=== PATIENT | female | born 1940 | race African-American/Black ===

== ENCOUNTER 2020-01-24 00:50 | Inpatient (IN) | payer MEDICARE, MEDICAID ==
[~2020-01-24] VITALS: Ht 165.1 cm; Wt 109.8 kg
[2020-01-24] VITALS (7 sets, daily range): BP systolic 86–129; BP diastolic 49–69
[2020-01-24] MEDS ORDERED: DEXTROSE 50% WATER 50ML SYRINGE IV ONE ×4 (01:00→09:41)
[2020-01-24 01:19] LABS: CHLORIDE 106 mEq/L (98-107)
[2020-01-24 01:27] LABS: BASOPHILS % 0.2 % (0.0-2.0); EOSINOPHILS % 0.4 % (0.0-5.0); HEMATOCRIT. 36.9 % (36.0-48.0); HEMOGLOBIN. 12.7 g/dL (12.0-16.0); LYMPHOCYTES % 12.9 % (20.0-50.0); MEAN CORPUSCULAR HEMOGLOBIN 30.1 pg (28.0-32.0); MEAN CORPUSCULAR VOLUME 87.7 fL (81.0-99.0); MEAN PLATELET VOLUME 8.9 fl (7.4-10.4); MONOCYTES % 4.3 % (2.0-8.0); NEUTROPHILS % 82.2 % (40.0-76.0); PLATELET 129 x1000/uL (130-400); RED CELL DISTRIBUTION WIDTH 18.4 % (11.6-14.6)
[2020-01-24] MEDS ORDERED: DEXT 5%/0.9% NACL 1,000 ML IV ONE (01:30)
[2020-01-24] MEDS ORDERED: AMMONIA INHALATION 1EA INH ONE (01:45)
[2020-01-24 03:25] LABS: CHLORIDE 107 mEq/L (98-107)
[2020-01-24] MEDS ORDERED: DEXTROSE 10% WATER 500 ML IV ONE (03:30)
[2020-01-24] MEDS ORDERED: DEXT 5%/0.9% NACL 1,000 ML IV SCH (09:45)
[2020-01-24] MEDS ORDERED: DEXTROSE 50% WATER 50ML SYRINGE IV PRN ×3 (09:45→20:00)
[2020-01-24] MEDS: IBUPROFEN 400MG TABLET PO PRN ×2 (11:17→17:43)
[2020-01-24 11:59] LABS: INR 1.8; PROTHROMBIN TIME 19.2 sec (9.6-11.0)
[2020-01-24] MEDS: FUROSEMIDE 40MG/4ML VIAL IVP NR ×2 (13:30→16:24)
[2020-01-24] MEDS ORDERED: FLUT1BLS11 IH (15:24)
[2020-01-24] MEDS ORDERED: FAMO20TA8 PO (15:24)
[2020-01-24] MEDS ORDERED: AMLO10TA80 PO (15:24)
[2020-01-24] MEDS ORDERED: ASPI-1497 PO (15:24)
[2020-01-24] MEDS ORDERED: EZET10TA13 PO (15:24)
[2020-01-24] MEDS ORDERED: B25 PO (15:24)
[2020-01-24] MEDS ORDERED: LATA2.5D2 EACHEYE (15:24)
[2020-01-24] MEDS ORDERED: DORZ10DR9 EACHEYE (15:24)
[2020-01-24] MEDS ORDERED: METH2.5T PO (15:24)
[2020-01-24] MEDS ORDERED: FOLI-43 MT (15:24)
[2020-01-24] MEDS ORDERED: REPA2TAB8 PO (15:24)
[2020-01-24] MEDS ORDERED: ATOR20TA65 PO (15:24)
[2020-01-24] MEDS ORDERED: LEVO5TAB13 PO (15:24)
[2020-01-24] MEDS ORDERED: IBUP-2029 PO (15:24)
[2020-01-24] MEDS ORDERED: ONDANSETRON HCL 4MG/2ML INJ IV PRN (17:30)
[2020-01-24] MEDS ORDERED: DEXTROSE 10% WATER 1,000 ML IV SCH (18:30)
[2020-01-24] MEDS: BLOOD SUGAR DIAGNOSTIC STRIP TEST SCH (21:00)
[2020-01-24] MEDS: INSULIN LISPRO 100 UNITS/ML SUBCUT SCH (21:00)
[2020-01-24] MEDS: HYDROCODONE/ACETAMINOPHEN 5/325MG TABLET PO PRN (21:49)
[2020-01-25] VITALS (12 sets, daily range): BP systolic 97–132; BP diastolic 28–73
[2020-01-25] MEDS: INSULIN LISPRO 100 UNITS/ML SUBCUT SCH ×4 (06:41→21:00)
[2020-01-25] MEDS: BLOOD SUGAR DIAGNOSTIC STRIP TEST SCH ×4 (06:41→20:48)
[2020-01-25] MEDS: HYDROCODONE/ACETAMINOPHEN 5/325MG TABLET PO PRN ×2 (11:39→16:04)
[2020-01-25 16:19] LABS: CHLORIDE 103 mEq/L (98-107)
[2020-01-25 16:20] LABS: BASOPHILS % 0.2 % (0.0-2.0); EOSINOPHILS % 0.3 % (0.0-5.0); HEMATOCRIT. 37.5 % (36.0-48.0); HEMOGLOBIN. 11.7 g/dL (12.0-16.0); LYMPHOCYTES % 12.5 % (20.0-50.0); MEAN CORPUSCULAR HEMOGLOBIN 29.4 pg (28.0-32.0); MEAN PLATELET VOLUME 9.5 fl (7.4-10.4); MONOCYTES % 3.4 % (2.0-8.0); NEUTROPHILS % 83.6 % (40.0-76.0); PLATELET 106 x1000/uL (130-400); RED BLOOD CELL COUNT 3.99 mill/uL (4.2-5.4); RED CELL DISTRIBUTION WIDTH 19.5 % (11.6-14.6)
[2020-01-26] VITALS (46 sets, daily range): BP systolic 69–120; BP diastolic 16–66
[2020-01-26] MEDS: BLOOD SUGAR DIAGNOSTIC STRIP TEST SCH ×4 (06:31→23:38)
[2020-01-26] MEDS: INSULIN LISPRO 100 UNITS/ML SUBCUT SCH ×4 (06:31→23:39)
[2020-01-26] MEDS ORDERED: FUROSEMIDE 40MG/4ML VIAL IVP SCH (08:30)
[2020-01-26] MEDS ORDERED: ALBUTEROL (0.5%) 2.5MG/0.5ML NEB HHN SCH (08:30)
[2020-01-26 09:50] LABS: BG BASE EXCESS -21.6 mmol/L (-2.0-2.0); BG DEOXYHEMOGLOBIN 2.4 % (0.0-5.0); BG FRACTION INSPIRED OXYGEN 44; BG METHEMOGLOBIN 0.2 % (0.0-1.5); BG OXYGEN SATURATION 97.6 % (92.0-98.5); BG OXYHEMOGLOBIN 97.4 % (94.0-97.0); BG PCO2 14.6 mmHg (35.0-45.0); BG PH 7.155 (7.350-7.450); BG SAMPLE SITE LEFT BRACHIAL; BG TOTAL HEMOGLOBIN 11.4 g/dL (12.0-18.0); BG VENT MODE NASAL CANNULA
[2020-01-26 09:50] LABS: HEMATOCRIT. 36.1 % (36.0-48.0); HEMOGLOBIN. 11.3 g/dL (12.0-16.0); MEAN CORPUSCULAR HEMOGLOBIN 29.2 pg (28.0-32.0); MEAN CORPUSCULAR VOLUME 93.3 fL (81.0-99.0); MEAN PLATELET VOLUME 9.3 fl (7.4-10.4); PLATELET 135 x1000/uL (130-400); RED BLOOD CELL COUNT 3.87 mill/uL (4.2-5.4); RED CELL DISTRIBUTION WIDTH 19.6 % (11.6-14.6)
[2020-01-26 09:59] LABS: PROTHROMBIN TIME 21.1 sec (9.6-11.0)
[2020-01-26] MEDS ORDERED: SODIUM BICARBONATE 8.4% 1 MEQ/ML 50ML SYR IV NR ×3 (10:00→15:30)
[2020-01-26] MEDS ORDERED: ENOXAPARIN 120MG/0.8ML SYR SUBCUT SCH (10:00)
[2020-01-26] MEDS ORDERED: ALBUTEROL (0.083%) 2.5MG/3ML NEB HHN SCH (12:00)
[2020-01-26 12:29] LABS: BG BASE EXCESS -21.6 mmol/L (-2.0-2.0); BG BILEVEL POS AIRWAY PRESSURE 15/5; BG CARBOXYHEMOGLOBIN 0.3 % (0.5-1.5); BG DEOXYHEMOGLOBIN 0.5 % (0.0-5.0); BG FRACTION INSPIRED OXYGEN 100; BG HCO3 ACT 5.9 mmol/L (22.0-26.0); BG METHEMOGLOBIN 0.2 % (0.0-1.5); BG OXYGEN SATURATION 99.5 % (92.0-98.5); BG PCO2 18.7 mmHg (35.0-45.0); BG PH 7.118 (7.350-7.450); BG PO2 398.4 mmHg (75.0-100.0); BG SAMPLE SITE LEFT BRACHIAL; BG TOTAL HEMOGLOBIN 10.2 g/dL (12.0-18.0); BG VENT MODE MASK - BIPAP; BG VENT RATE 18 set
[2020-01-26] MEDS ORDERED: SODIUM BICARBONATE 50 MEQ in DEXTROSE 5% WATER 1,000 ML IV SCH (13:00)
[2020-01-26] MEDS ORDERED: PROPOFOL 10MG/ML 100ML 100 ML IV PRN (13:45)
[2020-01-26] MEDS ORDERED: FENTANYL CITRATE/PF 500 MCG in SODIUM CHLORIDE 0.9% 40 ML IV PRN (13:45)
[2020-01-26] MEDS ORDERED: FENTANYL 1,000 MCG in SODIUM CHLORIDE 0.9% 100 ML IV PRN (14:00)
[2020-01-26] MEDS ORDERED: SODIUM CHLORIDE 0.9% 10ML VIAL ONE (14:05)
[2020-01-26] MEDS ORDERED: VECURONIUM BROMIDE 10 MG/VIAL IV ONE (14:05)
[2020-01-26] MEDS ORDERED: ETOMIDATE 2MG/ML 10ML VIAL IV ONE (14:05)
[2020-01-26] MEDS ORDERED: PHENYLEPHRINE HCL 10 MG/ML 1ML (IV VIAL) IV ONE (14:05)
[2020-01-26 14:11] LABS: PLATELET ESTIMATE NORMAL
[2020-01-26] MEDS ORDERED: ALBUMIN HUMAN 25GM/100ML (25%) IV NR (14:45)
[2020-01-26] MEDS ORDERED: VANCOMYCIN 2,000 MG in DEXT 5% WATER 500 ML IV NR (15:00)
[2020-01-26] MEDS ORDERED: CEFTRIAXONE 1 G PREMIX 50 ML IV SCH (15:00)
[2020-01-26 15:15] LABS: BG BASE EXCESS -19.6 mmol/L (-2.0-2.0); BG CARBOXYHEMOGLOBIN 0.3 % (0.5-1.5); BG DEOXYHEMOGLOBIN 0.4 % (0.0-5.0); BG FRACTION INSPIRED OXYGEN 100; BG HCO3 ACT 8.4 mmol/L (22.0-26.0); BG METHEMOGLOBIN 0.5 % (0.0-1.5); BG OXYGEN SATURATION 99.6 % (92.0-98.5); BG OXYHEMOGLOBIN 98.8 % (94.0-97.0); BG PCO2 27.1 mmHg (35.0-45.0); BG PO2 300.9 mmHg (75.0-100.0); BG SAMPLE SITE LEFT RADIAL; BG TIDAL VOLUME(mL) 550 mL; BG TOTAL HEMOGLOBIN 10.3 g/dL (12.0-18.0); BG VENT MODE VENT - A/C; BG VENT RATE 20 set
[2020-01-26] MEDS: PHENYLEPHRINE 80 MG in DEXT 5% WATER 500 ML IV PRN ×2 (15:55→23:54)
[2020-01-26] MEDS: IPRATROPIUM/ALBUTEROL 0.5-3(2.5)MG/3ML NEB HHN SCH (16:39)
[2020-01-26] MEDS ORDERED: SODIUM BICARBONATE 100 MEQ in DEXTROSE 5% WATER 1,000 ML IV SCH (18:00)
[2020-01-26] MEDS ORDERED: NOREPINEPHRINE 32 MG in DEXT 5% WATER 468 ML IV PRN (19:00)
[2020-01-26 21:29] LABS: CLARITY URINE TURBID (CLEAR); COLOR URINE DARK YELLOW (YELLOW); KETONES URINE NEGATIVE (NEGATIVE); LEUKOCYTE ESTERASE URINE 1+ (NEGATIVE); NITRITE URINE POSITIVE (NEGATIVE); OCCULT BLOOD URINE 3+ (NEGATIVE); PROTEIN URINE 1+ (NEGATIVE); UROBILINOGEN URINE 0.2 E.U./dL (0.2-1.0)
[2020-01-26] MEDS ORDERED: DOPAMINE HCL 800 MG in DEXT 5% WATER 230 ML IV PRN (22:15)
[2020-01-26] MEDS: METRONIDAZOLE 500 MG PREMIX 100 ML IV SCH (22:29)
[2020-01-26 23:12] LABS: BASOPHILS % 0.9 % (0.0-2.0); EOSINOPHILS % 0.4 % (0.0-5.0); HEMOGLOBIN. 9.9 g/dL (12.0-16.0); LYMPHOCYTES % 24.4 % (20.0-50.0); MEAN CORPUSCULAR HEMOGLOBIN 30.3 pg (28.0-32.0); MEAN CORPUSCULAR VOLUME 97.7 fL (81.0-99.0); MEAN PLATELET VOLUME 9.1 fl (7.4-10.4); MONOCYTES % 1.2 % (2.0-8.0); NEUTROPHILS % 73.1 % (40.0-76.0); PLATELET 101 x1000/uL (130-400); RED BLOOD CELL COUNT 3.28 mill/uL (4.2-5.4); RED CELL DISTRIBUTION WIDTH 20.3 % (11.6-14.6)
[2020-01-27] VITALS (34 sets, daily range): BP systolic 64–138; BP diastolic 16–58
[2020-01-27] MEDS ORDERED: SODIUM BICARBONATE 8.4% 1 MEQ/ML 50ML SYR IV SCH
[2020-01-27] MEDS: INSULIN LISPRO 100 UNITS/ML SUBCUT SCH ×2 (00:03→05:29)
[2020-01-27] MEDS: VASOPRESSIN 10 UNIT in SODIUM CHLORIDE 0.9% 99.5 ML IV PRN ×2 (02:24→05:41)
[2020-01-27] MEDS ORDERED: DOPAMINE HCL 800 MG in DEXT 5% WATER 490 ML IV PRN ×2 (02:30→03:00)
[2020-01-27] MEDS ORDERED: DEXT 5% IV PRN ×2 (05:00→08:00)
[2020-01-27] MEDS ORDERED: WATER IV PRN ×2 (05:00→08:00)
[2020-01-27] MEDS ORDERED: DOPAMINE HCL IV PRN ×2 (05:00→08:00)
[2020-01-27] MEDS: BLOOD SUGAR DIAGNOSTIC STRIP TEST SCH (05:11)
[2020-01-27] MEDS: METRONIDAZOLE 500 MG PREMIX 100 ML IV SCH (05:17)
[2020-01-27 06:33] LABS: HEMATOCRIT. 31.1 % (36.0-48.0); HEMOGLOBIN. 8.8 g/dL (12.0-16.0); MEAN CORPUSCULAR HEMOGLOBIN 30.9 pg (28.0-32.0); MEAN CORPUSCULAR VOLUME 108.6 fL (81.0-99.0); PLATELET 69 x1000/uL (130-400); RED BLOOD CELL COUNT 2.86 mill/uL (4.2-5.4); RED CELL DISTRIBUTION WIDTH 21.7 % (11.6-14.6)
[2020-01-27 06:39] LABS: CHLORIDE 97 mEq/L (98-107)
[2020-01-27 07:32] LABS: NUCLEATED RED BLOOD CELLS 33 /100 WBC; PLATELET ESTIMATE DECREASED
[2020-01-27] MEDS: PHENYLEPHRINE 80 MG in DEXT 5% WATER 500 ML IV PRN (08:02)
[2020-01-27] MEDS: IPRATROPIUM/ALBUTEROL 0.5-3(2.5)MG/3ML NEB HHN SCH (08:51)
[2020-01-27] MEDS ORDERED: VANCOMYCIN 1250MG in DEXTROSE 5% WATER 250ML IV SCH (11:00)
== END 2020-01-27 09:20 | disposition expired | DRG 871 ==
LOC: ER 01:06 → 3WST 02:50 → EDBEDREQ 02:54 → EDBEDREQTM 02:54 → ENRESERV 05:08 → CVICU 01-26 13:35
PROVIDERS: ADMIT Internal Medicine; ATTEND Internal Medicine
PROC: 0BH17EZ Insertion of Endotracheal Airway into Trachea, Via Natural or Artificial Opening (ICD-10-PCS; principal; 2020-01-26)
PROC: 5A1935Z Respiratory Ventilation, Less than 24 Consecutive Hours (ICD-10-PCS; 2020-01-26)
PROC: 5A1935Z Respiratory Ventilation, Less than 24 Consecutive Hours (ICD-10-PCS; 2020-01-26)
PROC: 05HY33Z Insertion of Infusion Device into Upper Vein, Percutaneous Approach (ICD-10-PCS; 2020-01-26)
PROC: B54MZZA Ultrasonography of Right Upper Extremity Veins, Guidance (ICD-10-PCS; 2020-01-26)
PROC: 5A12012 Performance of Cardiac Output, Single, Manual (ICD-10-PCS; 2020-01-27)
DX: A41.9 Sepsis, unspecified organism (principal); G93.41 Metabolic encephalopathy; E43 Unspecified severe protein-calorie malnutrition; K85.90 Acute pancreatitis without necrosis or infection, unspecified; R65.21 Severe sepsis with septic shock; I50.43 Acute on chronic combined systolic (congestive) and diastolic (congestive) heart failure; J96.00 Acute respiratory failure, unspecified whether with hypoxia or hypercapnia; C78.7 Secondary malignant neoplasm of liver and intrahepatic bile duct; C16.9 Malignant neoplasm of stomach, unspecified; R17 Unspecified jaundice; D68.9 Coagulation defect, unspecified; E87.4 Mixed disorder of acid-base balance; N17.9 Acute kidney failure, unspecified; Z68.41 Body mass index [BMI] 40.0-44.9, adult; Z51.5 Encounter for palliative care; E11.649 Type 2 diabetes mellitus with hypoglycemia without coma; E66.01 Morbid (severe) obesity due to excess calories; D64.9 Anemia, unspecified; D69.6 Thrombocytopenia, unspecified; D72.810 Lymphocytopenia; E78.5 Hyperlipidemia, unspecified; E87.5 Hyperkalemia; M06.9 Rheumatoid arthritis, unspecified; Z87.891 Personal history of nicotine dependence; Z90.710 Acquired absence of both cervix and uterus; I11.0 Hypertensive heart disease with heart failure; I95.9 Hypotension, unspecified; Z20.828 Contact with and (suspected) exposure to other viral communicable diseases
CPT/HCPCS: 36415; 36600; 71045; 76705; 76937; 78580; 80048; 80053; 80202; 81003; 82105; 82140; 82375; 82378; 82805; 82962; 83036; 83605; 83880; 84478; 84484; 85025; 86304; 87070; 87077; 87186; 93005; 93970; 99291; C1725; J0696; J1265; J1815; J1940; J2370; J2704; J3370; J3490; J7042; J7050; J7060; J7070; P9047; U0003-CS